=== PATIENT | male | born 1950 ===

== ENCOUNTER 2021-07-31 10:32 | Outpatient (CLI) | payer MEDICARE ==
[2021-07-31 21:44] LABS: SARS-CoV-2 PCR by NAA Not Detected (NotDetected)
== END 2021-07-31 10:33 | disposition home or self-care (01) ==
LOC: CSHLAB 10:32
PROVIDERS: ATTEND Internal Medicine Gastroenterology
DX: Z01.818 Encounter for other preprocedural examination (principal); Z20.822 Contact with and (suspected) exposure to COVID-19
CPT/HCPCS: U0003; U0005

== ENCOUNTER 2021-08-05 06:25 | Day surgery (SDC) | payer MEDICARE ==
[2021-07-25 13:13] VITALS: BMI 26.9
[2021-08-05] MEDS ORDERED: Lidocaine 1% MPF 2 ML VIAL ONE (07:10)
[2021-08-05] MEDS ORDERED: PROPOFOL 40 ML ONE (07:28)
[2021-08-05] MEDS ORDERED: Fentanyl 100 MCG/2 ML VIAL ONE (07:45)
[2021-08-05] MEDS ORDERED: PROPOFOL 20 ML ONE (08:21)
== END 2021-08-05 09:18 | disposition home or self-care (01) ==
LOC: CSHSDC 06:25
PROVIDERS: ATTEND Internal Medicine Gastroenterology
PROC: 0DB68ZZ Excision of Stomach, Via Natural or Artificial Opening Endoscopic (ICD-10-PCS; principal; 2021-08-05)
PROC: 0DBK8ZZ Excision of Ascending Colon, Via Natural or Artificial Opening Endoscopic (ICD-10-PCS; 2021-08-05)
DX: R10.9 Unspecified abdominal pain (principal); K31.7 Polyp of stomach and duodenum; K57.30 Diverticulosis of large intestine without perforation or abscess without bleeding; K63.5 Polyp of colon; K64.9 Unspecified hemorrhoids; I10 Essential (primary) hypertension; E78.5 Hyperlipidemia, unspecified; K58.9 Irritable bowel syndrome, unspecified; F41.9 Anxiety disorder, unspecified; I25.10 Atherosclerotic heart disease of native coronary artery without angina pectoris
CPT/HCPCS: 88305; J2704; J3010